=== PATIENT | male | born 1975 | race Caucasian/White ===

== ENCOUNTER 2021-06-25 09:21 | Emergency (ER) | payer OTHER ==
[~2021-06-25] VITALS: Ht 182.9 cm; Wt 89.0 kg
--- OUTSIDE RECORDS SUMMARY | 2021-06-25 10:13 | CCD | Continuity of Care Document ---
Author Author Terrell WYLIE Organization Unknown Address [address] [place] [address] [place] [address] Phone [phone] Problems Description No Information Available Social History Type Date Description Comments Sex Unknown ETOH Use Occasionally consumes alcohol Tobacco Use Start: Unknown Patient has never smoked Tobacco Use Start: Unknown The patient has never vaped Smoking Status Reviewed: 05/16/21 The patient has never vaped Allergies, Adverse Reactions, Alerts Description No Known Drug Allergies Medications Description No Active Medications Immunizations Description No Information Available Vital Signs Date Vital Result Comment 05/16/2021 4:26pm BP Systolic 117 mmHg BP Diastolic 77 mmHg Heart Rate 68 /min Respiratory Rate 16 /min O2 % BldC Oximetry 99 % Body Temperature 98.2 F Weight 190.00 lb Height 71 inches 5'11" BMI (Body Mass Index) 26.5 kg/m2 Pain Level 5 Results Description No Information Available Procedures Date Code Description Status 05/16/2021 88849 Office/Outpatient New Low MDM 30 -44 Minutes Completed Medical Devices Description No Information Available Encounters Type Date Location Provider Dx Diagnosis Office Visit 05/16/2021 11:10a Main Office KATHY Hernandez J00 Acute nasopharyngitis [common cold] Z20.828 Contact w and exposure to ot h viral communicable diseases Assessments Date Code Description Provider 05/16/2021 J00 Acute nasopharyngitis [common co ld] KATHY Hernandez 05/16/2021 Z20.828 Contact with and (marshall spected) exposure to other viral communicable diseases KATHY Hernandez Plan of Treatment 05/16/2021 - KATHY Hernandez* J00 Acute nasopharyngitis [common cold] * Z20.828 Contact with and (suspected) exposure to other viral communicable diseases * All * New Medication:* No Active Medications - Functional Status Description No Information Available Mental Status Description No Information Available Referrals Description No Information Available
--- OUTSIDE RECORDS SUMMARY | 2021-06-25 10:13 | CCD ---
Author Author [facility] Organization [facility] Address Unknown Phone Unavailable Care Team Providers Care Box Sorter Name Role Phone NO, PCP Unavailable Unavailable RING, K CHRISSY PA Unavailable Unavailable RING, K CHRISSY PA Unavailable Unavailable RING, K CHRISSY PA Unavailable Unavailable RING, K CHRISSY PA Unavailable Unavailable RING, K CHRISSY PA Unavailable Unavailable RING, K CHRISSY PA Unavailable Unavailable RING, K CHRISSY PA Unavailable Unavailable RING, K CHRISSY PA Unavailable Unavailable RING, K CHRISSY PA Unavailable Unavailable RING, K CHRISSY PA Unavailable Unavailable RING, K CHRISSY PA Unavailable Unavailable RING, K CHRISSY PA Unavailable Unavailable RING, K CHRISSY PA Unavailable Unavailable RING, K CHRISSY PA Unavailable Unavailable RING, K CHRISSY PA Unavailable Unavailable RING, K CHRISSY PA Unavailable Unavailable RING, K CHRISSY PA Unavailable Unavailable RING, K CHRISSY PA Unavailable Unavailable RING, K CHRISSY PA Unavailable Unavailable RING, K CHRISSY PA Unavailable Unavailable RING, K CHRISSY PA Unavailable Unavailable Osmar, R Althea SKATE BOARDER Unavailable Unavailable Osmar, R Althea SKATE BOARDER Unavailable Unavailable Osmar, R Althea SKATE BOARDER Unavailable Unavailable Osmar, R Althea SKATE BOARDER Unavailable Unavailable Omsar, R Althea SKATE BOARDER Unavailable Unavailable Osmar, R Althea SKATE BOARDER Unavailable Unavailable Osmar, R Althea SKATE BOARDER Unavailable Unavailable Osmar, R Althea SKATE BOARDER Unavailable Unavailable Osmar, R Althea SKATE BOARDER Unavailable Unavailable Osmar, R Althea SKATE BOARDER Unavailable Unavailable Osmar, R Althea SKATE BOARDER Unavailable Unavailable Osmar, R Althea SKATE BOARDER Unavailable Unavailable Osmar, R Althea SKATE BOARDER Unavailable Unavailable Osmar, R Althea SKATE BOARDER Unavailable Unavailable Osmar, R Althea SKATE BOARDER Unavailable Unavailable Osmar, R Althea SKATE BOARDER Unavailable Unavailable Osmar, R Althea SKATE BOARDER Unavailable Unavailable Osmar, R Althea SKATE BOARDER Unavailable Unavailable Osmar, R Althea SKATE BOARDER Unavailable Unavailable Osmar, R Althea SKATE BOARDER Unavailable Unavailable Osmar, R Althea SKATE BOARDER Unavailable Unavailable Osmar, R Althea SKATE BOARDER Unavailable Unavailable Osmar, R Althea SKATE BOARDER Unavailable Unavailable Osmar, R Althea SKATE BOARDER Unavailable Unavailable Osmar, R Althea SKATE BOARDER Unavailable Unavailable Osmar, R Althea SKATE BOARDER Unavailable Unavailable Osmar, R Althea SKATE BOARDER Unavailable Unavailable Osmar, R Althea SKATE BOARDER Unavailable Unavailable Osmar, R Althea SKATE BOARDER Unavailable Unavailable Osmar, R Althea SKATE BOARDER Unavailable Unavailable Osmar, R Althea SKATE BOARDER Unavailable Unavailable Osmar, R Althea SKATE BOARDER Unavailable Unavailable Osmar, R Althea SKATE BOARDER Unavailable Unavailable Osmar, R Althea SKATE BOARDER Unavailable Unavailable Osmar, R Althea SKATE BOARDER Unavailable Unavailable Osmar, R Althea SKATE BOARDER Unavailable Unavailable Osmar, R Althea SKATE BOARDER Unavailable Unavailable Osmar, R Althea SKATE BOARDER Unavailable Unavailable Osmar, R Althea SKATE BOARDER Unavailable Unavailable Osmar, R Althea SKATE BOARDER Unavailable Unavailable Re-disclosure Warning The records that you are about to access may contain information from federally-assisted alcohol or drug abuse programs. If such information is present, then the following federally mandated warning applies: This information has been disclosed to you from records protected by federal confidentiality rules (42 CFR part 2). The federal rules prohibit you from making any further disclosure of this information unless further disclosure is expressly permitted by the written consent of the person to whom it pertains or as otherwise permitted by 42 CFR part 2. A general authorization for the release of medical or other information is NOT sufficient for this purpose. The Federal rules restrict any use of the information to criminally investigate or prosecute any alcohol or drug abuse patient.The records that you are about to access may contain highly sensitive health information, the redisclosure of which is protected by Article 27-F of the [facility] Public Health law. If you continue you may have access to information: Regarding HIV / AIDS; Provided by facilities licensed or operated by the [facility] Office of Mental Health; or Provided by the [facility] Office for People With Developmental Disabilities. If such information is present, then the following [facility] mandated warning applies: This information has been disclosed to you from confidential records which are protected by state law. State law prohibits you from making any further disclosure of this information without the specific written consent of the person to whom it pertains, or as otherwise permitted by law. Any unauthorized further disclosure in violation of state law may result in a fine or snf sentence or both. A general authorization for the release of medical or other information is NOT sufficient authorization for further disc losure. Encounters Encounter Providers Location Date Indications Data Source(s ) Outpatient Attender: CHRISSY Rico Primary 05/16/2021 11:10:00 AM EDT [facility] ([facility], [facility]) Outpatient Attender: Althea Prasad FNPConsultant: PCP NO 10/23/2020 03:15:00 PM EDT - 10/23/2020 04:15:00 PM EDT [facility] [address] [facility] [address] 10/20/2020 12:00:00 AM EDT eC1 ([facility]) Immunizations Vaccine Date Status Description Data Source(s) COVID-19 VACCINE Moderna 01/08/2021 12:00:00 AM EDT completed [facility] Vaccine Series Complete: YESThis Data wa s Submitted to [facility] [employer]. COVID-19 VACCINE Moderna 11/06/2020 12:00:00 AM EDT completed [facility] Vaccine Series Complete: NOThis Data was Submitted to [facility] [employer]. COVID-19 VACCINE, MRNA-[id number], LNP-S (MODERNA)/PF 11/06/2020 1 2:00:00 AM EDT completed [facility] Medications No Information Insurance Providers Payer name Policy type / Coverage type Policy ID Covered democrat ID Covered democrat's relationship to page Policy Page Plan Information OTHER1 [facility] [employer] [id number] SP [id number] [facility] [employer] XIX [id number] [facility] [id number] SP [id number] Problems, Conditions, and Diagnoses Code Display Name Description Problem Type Effective Dates Data Source(s) Z0000 Encounter for general adult medical exam ination without abnormal findings Encounter for general adult medical examination without abnormal findings Diagnosis 10/23/2020 03:15:00 PM EDT [facility] Surgeries/Procedures Procedure Description Date Indications Data Source(s) OFFICE OUTPATIENT NEW 30 MINUTES 05/16/2021 12:00:00 A M EDT [facility] ([facility], [facility]) Results ID Date Data Source [id number] 05/17/2021 12:00:00 AM EDT [facility] Name Value Range Interpretation Code Description Data Xiomara rce(s) Supporting Document(s) SARS-CoV2 Rapid Antigen Negative [facility] This lab was reported by [facility]. ID Date Data Source [id number] 10/23/2020 04:04:00 PM EDT [facility] Name Value Range Interpretation Code Description Data Xiomara rce(s) Supporting Document(s) COMPREHENSIVE METABOLIC PANEL [facility] COMPREHENSIVE METABOLIC PANEL Sodium [Moles/volume] in Serum or Plasma 139 mEq/L 134 - 153 [facility] Potassium [Moles/volume] in Serum or Plasma 4.1 mEq/L 3.6 - 5.0 [facility] Chloride [Moles/volume] in Serum or Plasma 101 mEq/L 98 - 107 [facility] Carbon dioxide, total [Moles/volume] in Serum or Plasma 29 MEQ/L 22 - 30 [facility] Glucose [Mass/volume] in Serum or Plasma 89 MG/DL 70 - 99 [facility] BUN 19 MG/DL 7 - 21 [facility] Creatinine [Mass/volume] in Serum or Plasma 1.0 MG/DL 0.7 - 1.5 [facility] BUN/CREAT 19 8 - 27 [facility] Protein [Mass/volume] in Serum or Plasma 7.0 G/DL 6.3 - 8.2 [facility] Albumin [Mass/volume] in Serum or Plasma 4.8 G/DL 3.9 - 5.0 [facility] Globulin [Mass/volume] in Serum by calculation 2.2 GM/DL 2.4 - 3.2 L [facility] A/G RATIO 2.2 0.8 - 2.0 [facility] Calcium [Mass/volume] in Serum or Plasma 9.3 MG/DL 8.4 - 10.2 [facility] Bilirubin.total [Mass/volume] in Serum or Plasma <0.7 MG/DL 0.2 - 1.3 [facility] Alkaline phosphatase [Enzymatic activity/volume] in Serum or Plasma 66 U/L 38 - 126 [facility] Aspartate aminotransferase [Enzymatic activity/volume] in Serum or Plasma 28 U/L 5 - 40 [facility] Alanine aminotransferase [Enzymatic activity/volume] in Seru m or Plasma 28 U/L 7 - 56 [facility] Anion gap 3 in Serum or Plasma 9.0 mmol/L 8.0 - 16.0 [facility] AGE 45 yrs [facility] al NON-AA GFR >60 mL/min [facility] AFR AMER GFR >60 mL/min [facility] Male GFR In terprentation 20-49 yrs >60 mL/min Normal 50-59 yrs >56 mL/min Normal 60-69 yrs >49 mL/min Normal 70-79yrs >42 mL/min Normal 80 and above >35 mL/min Normal Female GFR Interpretation 20-39 yrs >60 mL/min Normal 40-49 yrs >58 mL/min Normal 50-59 yrs >51 mL/min Normal 60-69 yrs >45 mL/min Normal 70-79 yrs >39 mL/min Normal 80 and above >32 mL/min Normal ID Date Data Source [id number] 10/23/2020 04:04:00 PM EDT [facility] Name Value Range Interpretation Code Description Data Xiomara rce(s) Supporting Document(s) CVE PANEL [facility] LIPID PANEL Cholesterol [Mass/volume] in Serum or Plasma 193 MG/DL 131 - 200 [facility] Deprecated Triglyceride [Mass/volume] in Serum or Plasma 135 MG/DL 3 5 - 160 [facility] HDL 46 MG/DL 29 - 86 [facility] Cholesterol in LDL [Mass/volume] in Serum or Plasma by Direc t assay 149 mg/dL 65 - 175 [facility] Cholesterol.total/Cholesterol in HDL [Mass Ratio] in Serum o r Plasma 4.2 3.4 - 4.9 [facility] LDL/HDL 3.24 1.00 - 3.55 [facility] CVE RISK CHOL/HDL LDL/HDLMEN: 1/2 AVERAGE 3.43 1.00 AVERAGE 4.97 3.55 2X AVERAGE 9.55 6.25 3X AVERAGE 23.99 7.99WOMEN: 1/2 AVERAGE 3.27 1.47 AVERAGE 4.44 3.22 2X AVERAGE 7.05 5.03 3X AVERAGE 11.04 6.14 ID Date Data Source [id number] 10/23/2020 04:01:00 PM EDT [facility] Name Value Range Interpretation Code Description Data Xiomara rce(s) Supporting Document(s) CBC W/AUTOMATED DIFF [facility] COMPLETE BLOOD COUNT Leukocytes [#/volume] in Blood by Automated count 6.4 10^3/uL 4.2 - 1 1.0 [facility] Erythrocytes [#/volume] in Blood by Automated count 4.91 10^6/uL 4. 50 - 6.30 [facility] Hemoglobin [Mass/volume] in Blood 14.1 g/dL 14.0 - 16.0 [facility] Hematocrit [Volume Fraction] of Blood by Automated count 41.2 % 4 1.0 - 51.0 [facility] Erythrocyte mean corpuscular volume [Entitic volume] by Auto mated count 83.9 fL 80.0 - 94.0 [facility] Erythrocyte mean corpuscular hemoglobin [Entitic mass] by Automated count 28.7 pg 27.0 - 34.0 [facility] Erythrocyte mean corpuscular hemoglobin concentration [Mass/volume] by Automated count 34.2 g/dL 31.0 - 36.0 [facility] Erythrocyte distribution width [Ratio] by Automated count 14.9 % 11.5 - 14.8 H [facility] Platelets [#/volume] in Blood by Automated count 244 10^3/uL 150 - 45 0 [facility] Platelet mean volume [Entitic volume] in Blood by Automated count 8.6 fL 7.4 - 10.4 [facility] Neutrophils/100 leukocytes in Blood by Automated count 54.7 % 37. 0 - 80.0 [facility] Lymphocytes/100 leukocytes in Blood by Manual count 31.1 % 25.0 - 40.0 [facility] Monocytes/100 leukocytes in Blood by Automated count 9.1 % 3.0 - 8.0 H [facility] Eosinophils/100 leukocytes in Blood by Automated count 4.1 % 0.0 - 7.0 [facility] Basophils/100 leukocytes in Blood by Automated count 0.8 % 0.0 - 2.0 [facility] %IG 0.2 % 0.0 - 0.[address] [facility] %NRBC 0.0 % 0.0 - 0.0 [facility] al Neutrophils [#/volume] in Blood by Automated count 3.48 10^3/uL 2.00 - 6.90 [facility] Lymphocytes [#/volume] in Blood by Automated count 1.98 10^3/uL 0.60 - 3.40 [facility] Monocytes [#/volume] in Blood by Automated count 0.58 10^3/uL 0.00 - 0.90 [facility] Eosinophils [#/volume] in Blood by Automated count 0.26 10^3/uL 0.00 - 0.70 [facility] Basophils [#/volume] in Blood by Automated count 0.05 10^3/uL 0.00 - 0.20 [facility] #IG 0.01 10^3/uL 0.00 - 0.10 [facility]ital #NRBC 0.00 10^3/uL 0.00 - 0.00 [facility] MANUAL DIFF NOT INDICATED [facility] RBC MORPH NOT INDICATED [facility] Procedure Social History Code Duration Value Status Description Data Source(s ) Smoking 10/20/2020 12:00:00 AM EDT Never Smoker completed Never S carroll eCW1 ([facility]) Vital Signs ID Date Data Source UNK Name Value Range Interpretation Code Description Data Source(s) Systolic blood pressure 117 mm[Hg] 117 mm[Hg] M [facility]ENT ([facility], [facility]) Diastolic blood pressure 77 mm[Hg] 77 mm[Hg] [facility] ([facility], [facility]) Heart rate 68 /min 68 /min [facility] ([facility]) Respiratory rate 16 /min 16 /min [facility] ( [facility], [facility]) Oxygen saturation in Arterial blood by Pulse oximetry 99 % 99 % [facility] ([facility], [facility]) Body temperature 98.2 [degF] 98.2 [degF] [facility] ([facility], [facility]) Body weight 190.00 [lb_av] 190.00 [lb_av] MEDEN T ([facility], [facility]) Body height 71 [in_i] 71 [in_i] [facility] ([facility]) 5'11" Body mass index (BMI) [Ratio] 26.5 kg/m2 26.5 k g/m2 [facility] ([facility]) Body weight 203.8 [lb_av] 203.8 [lb_av] W1 ([facility]) Body height 72 [in_i] 72 [in_i] eCW1 ([facility]) Body mass index (BMI) [Ratio] 27.64 kg/m2 27.64 kg/m2 eCW1 ([facility]) Heart rate 75 /min 75 /min eCW1 ([facility]) Respiratory rate 16 /min 16 /min eCW1 ([facility]) Body temperature 98.7 [degF] 98.7 [degF] eCW1 ( [facility]) Systolic blood pressure 119 mm[Hg] 119 mm[Hg] e CW1 ([facility]) Diastolic blood pressure 73 mm[Hg] 73 mm[Hg] eCW1 ([facility])
--- OUTSIDE RECORDS SUMMARY | 2021-06-25 10:13 | CCD | Continuity of Care Document ---
Author Author Terrell WYLIE Organization Unknown Address [address] [place] [id number] Phone [phone] Problems Description No Information Available Social History [...] 5 Results Description No Information Available Procedures Description No Information Available Medical Devices Description No Information Available Encounters Description No Information Available Assessments Description No Information Available Plan of Treatment 05/16/2021 - KATHY Hernandez* All * New Medication:* No Active Medications - Functional Status Description No Information Available Mental Status Description No Information Available Referrals Description No Information Available
[2021-06-25] MEDS ORDERED: diphenhydrAMINE 50MG/ML VIAL (J1200) IV ONE (12:35)
[2021-06-25] MEDS ORDERED: ACETAMINOPHEN 500 MG TAB PO ONE (12:35)
[2021-06-25] MEDS ORDERED: METOCLOPRAMIDE INJ 10MG/2ML VIAL (J2765 PER 1) IV ONE (12:35)
[2021-06-25] MEDS ORDERED: NS 1,000 ML IV ONE (12:35)
--- OUTSIDE RECORDS SUMMARY | 2021-06-25 12:48 | CCD ---
Author Author [facility] Organization [facility] Address Unknown Phone Unavailable Care Team Providers Care Rock Lather Name Role Phone NO, PCP Unavailable Unavailable [...] CHRISSY PA Unavailable Unavailable Osmar, R Althea SPIRAL WEAVER Unavailable Unavailable Osmar, R Althea SPIRAL WEAVER Unavailable Unavailable Osmar, R Althea SPIRAL WEAVER Unavailable Unavailable Osmar, R Althea SPIRAL WEAVER Unavailable Unavailable Osmar, R Althea SPIRAL WEAVER Unavailable Unavailable Osmar, R Althea SPIRAL WEAVER Unavailable Unavailable Osmar, R Althea SPIRAL WEAVER Unavailable Unavailable Osmar, R Althea SPIRAL WEAVER Unavailable Unavailable Osmar, R Althea SPIRAL WEAVER Unavailable Unavailable Osmar, R Althea SPIRAL WEAVER Unavailable Unavailable Osmar, R Althea SPIRAL WEAVER Unavailable Unavailable Osmar, R Althea SPIRAL WEAVER Unavailable Unavailable Osmar, R Althea SPIRAL WEAVER Unavailable Unavailable Osmar, R Althea SPIRAL WEAVER Unavailable Unavailable Osmar, R Althea SPIRAL WEAVER Unavailable Unavailable Osmar, R Althea SPIRAL WEAVER Unavailable Unavailable Osmar, R Althea SPIRAL WEAVER Unavailable Unavailable Osmar, R Althea SPIRAL WEAVER Unavailable Unavailable Osmar, R Althea SPIRAL WEAVER Unavailable Unavailable Osmar, R Althea SPIRAL WEAVER Unavailable Unavailable Osmar, R Althea SPIRAL WEAVER Unavailable Unavailable Osmar, R Althea SPIRAL WEAVER Unavailable Unavailable Osmar, R Althea SPIRAL WEAVER Unavailable Unavailable Osmar, R Althea SPIRAL WEAVER Unavailable Unavailable Osmar, R Althea SPIRAL WEAVER Unavailable Unavailable Osmar, R Althea SPIRAL WEAVER Unavailable Unavailable Osmar, R Althea SPIRAL WEAVER Unavailable Unavailable Osmar, R Althea SPIRAL WEAVER Unavailable Unavailable Osmar, R Althea SPIRAL WEAVER Unavailable Unavailable Osmar, R Althea SPIRAL WEAVER Unavailable Unavailable Osmar, R Althea SPIRAL WEAVER Unavailable Unavailable Osmar, R Althea SPIRAL WEAVER Unavailable Unavailable Osmar, R Althea SPIRAL WEAVER Unavailable Unavailable Osmar, R Althea SPIRAL WEAVER Unavailable Unavailable Osmar, R Althea SPIRAL WEAVER Unavailable Unavailable Osmar, R Althea SPIRAL WEAVER Unavailable Unavailable Osmar, R Althea SPIRAL WEAVER Unavailable Unavailable Osmar, R Althea SPIRAL WEAVER Unavailable Unavailable Osmar, R Althea SPIRAL WEAVER Unavailable Unavailable Osmar, R Althea SPIRAL WEAVER Unavailable Unavailable Re-disclosure Warning The records that [...] is protected by Article 27-F of the [facility] Public Health law. If you continue you may have access to information: Regarding HIV / AIDS; Provided by facilities licensed or operated by the [facility] Office of Mental Health; or Provided by the [facility] Office for People With Developmental Disabilities. If such information is present, then the following [facility] mandated warning applies: This information has [...] law may result in a fine or senior living sentence or both. A general authorization for the release of medical or other information is NOT sufficient authorization for further disc losure. Encounters Encounter Providers Location Date Indications Data Source(s ) Outpatient Attender: CHRISSY Rico Primary 05/16/2021 11:10:00 AM EDT [facility] ([facility], [facility]) Outpatient Attender: Althea Prasad FNPConsultant: PCP NO 10/23/2020 03:15:00 PM EDT - 10/23/2020 04:15:00 PM EDT [facility] [address] [address] 10/20/2020 12:00:00 AM EDT eC1 ([facility]) Immunizations Vaccine Date Status Description Data Source(s) COVID-19 VACCINE Moderna 01/08/2021 12:00:00 AM EDT completed [facility] Vaccine Series Complete: YESThis Data wa s Submitted to [facility] Via [facility]. COVID-19 VACCINE Moderna 11/06/2020 12:00:00 AM EDT completed [facility] Vaccine Series Complete: NOThis Data was Submitted to [facility] Via [employer]. COVID-19 VACCINE, MRNA-[id number], LNP-S (MODERNA)/PF 11/06/2020 1 2:00:00 AM EDT completed [facility] Medications No Information Insurance Providers Payer name Policy type / Coverage type Policy ID Covered republican ID Covered republican's relationship to page Policy Page Plan Information OTHER1 [id number] SP [id number] [facility] XIX [id number] 18 [id number] [facility] [id number] SP [id number] Problems, Conditions, and Diagnoses Code Display Name Description Problem Type Effective Dates Data Source(s) Z0000 Encounter for general adult medical exam ination without abnormal findings Encounter for general adult medical examination without abnormal findings Diagnosis 10/23/2020 03:15:00 PM EDT [facility] Surgeries/Procedures Procedure Description Date Indications Data Source(s) OFFICE OUTPATIENT NEW 30 MINUTES 05/16/2021 12:00:00 A M EDT [facility] ([facility], [facility]) Results ID Date Data Source [id number] 05/17/2021 12:00:00 AM EDT [facility] Name Value Range Interpretation Code Description Data Xiomara rce(s) Supporting Document(s) SARS-CoV2 Rapid Antigen Negative [facility] This lab was reported by [facility]. ID Date Data Source [id number] 10/23/2020 04:04:00 PM EDT [facility] Name Value Range Interpretation Code Description Data Xiomara rce(s) Supporting Document(s) COMPREHENSIVE METABOLIC PANEL [facility] COMPREHENSIVE METABOLIC PANEL Sodium [Moles/volume] in Serum or Plasma 139 mEq/L 134 - 153 [facility] Potassium [Moles/volume] in Serum or Plasma 4.1 mEq/L 3.6 - 5.0 [facility] Chloride [Moles/volume] in Serum or Plasma 101 mEq/L 98 - 107 [facility] Carbon dioxide, total [Moles/volume] in Serum or Plasma 29 MEQ/L 22 - 30 [facility] Glucose [Mass/volume] in Serum or Plasma 89 MG/DL 70 - 99 [facility] BUN 19 MG/DL 7 - 21 [facility] Creatinine [Mass/volume] in Serum or Plasma 1.0 MG/DL 0.7 - 1.5 [facility] BUN/CREAT 19 8 - [facility] Protein [Mass/volume] in Serum or Plasma 7.0 G/DL 6.3 - 8.2 [facility] Albumin [Mass/volume] in Serum or Plasma 4.8 G/DL 3.9 - 5.0 [facility] Globulin [Mass/volume] in Serum by calculation 2.2 GM/DL 2.4 - 3.2 L [facility] A/G RATIO 2.2 0.8 - 2.0 H [facility] Calcium [Mass/volume] in Serum or Plasma 9.3 MG/DL 8.4 - 10.2 [facility] Bilirubin.total [Mass/volume] in Serum or Plasma <0.7 MG/DL 0.2 - 1.3 [facility] Alkaline phosphatase [Enzymatic activity/volume] in Serum or Plasma 66 U/L 38 - 126 [facility] Aspartate aminotransferase [Enzymatic activity/volume] in Serum or Plasma 28 U/L 5 - 40 [facility] Alanine aminotransferase [Enzymatic activity/volume] in Seru m or Plasma 28 U/L 7 - 56 [facility] Anion gap 3 in Serum or Plasma 9.0 mmol/L 8.0 - 16.0 [facility] AGE 45 yrs [facility] al NON-AA GFR >60 mL/min [facility] AFR AMER GFR >60 mL/min [facility] Male GFR In terprentation [...] >32 mL/min Normal ID Date Data Source [id number] 10/23/2020 04:04:00 PM EDT [facility] Name Value Range Interpretation Code Description Data Xiomara rce(s) Supporting Document(s) CVE PANEL [facility] LIPID PANEL Cholesterol [Mass/volume] in Serum or Plasma 193 MG/DL 131 - 200 [facility] Deprecated Triglyceride [Mass/volume] in Serum or Plasma 135 MG/DL 3 5 - 160 [facility] HDL 46 MG/DL 29 - 86 [facility] Cholesterol in LDL [Mass/volume] in Serum or Plasma by Direc t assay 149 mg/dL 65 - 175 [facility] Cholesterol.total/Cholesterol in HDL [Mass Ratio] in Serum o r Plasma 4.2 3.4 - 4.9 [facility] LDL/HDL 3.24 1.00 - 3.55 [facility] CVE RISK CHOL/HDL LDL/HDLMEN: 1/2 AVERAGE 3.43 1.00 AVERAGE 4.97 3.55 2X AVERAGE 9.55 6.25 3X AVERAGE 23.99 7.99WOMEN: 1/2 AVERAGE 3.27 1.47 AVERAGE 4.44 3.22 2X AVERAGE 7.05 5.03 3X AVERAGE 11.04 6.14 ID Date Data Source [id number] 10/23/2020 04:01:00 PM EDT [facility] Name Value Range Interpretation Code Description Data Xiomara rce(s) Supporting Document(s) CBC W/AUTOMATED DIFF [facility] COMPLETE BLOOD COUNT Leukocytes [#/volume] in Blood by Automated count 6.4 10^3/uL 4.2 - 1 1.0 [facility] Erythrocytes [#/volume] in Blood by Automated count 4.91 10^6/uL 4. 50 - 6.30 [facility] Hemoglobin [Mass/volume] in Blood 14.1 g/dL 14.0 - 16.0 [facility] Hematocrit [Volume Fraction] of Blood by Automated count 41.2 % 4 1.0 - 51.0 [facility] Erythrocyte mean corpuscular volume [Entitic volume] by Auto mated count 83.9 fL 80.0 - 94.0 [facility] Erythrocyte mean corpuscular hemoglobin [Entitic mass] by Automated count 28.7 pg 27.0 - 34.0 [facility] Erythrocyte mean corpuscular hemoglobin concentration [Mass/volume] by Automated count 34.2 g/dL 31.0 - 36.0 [facility] Erythrocyte distribution width [Ratio] by Automated count 14.9 % 11.5 - 14.8 H [facility] Platelets [#/volume] in Blood by Automated count 244 10^3/uL 150 - 45 0 [facility] Platelet mean volume [Entitic volume] in Blood by Automated count 8.6 fL 7.4 - 10.4 [facility] Neutrophils/100 leukocytes in Blood by Automated count 54.7 % 37. 0 - 80.0 [facility] Lymphocytes/100 leukocytes in Blood by Manual count 31.1 % 25.0 - 40.0 [facility] Monocytes/100 leukocytes in Blood by Automated count 9.1 % 3.0 - 8.0 H [facility] Eosinophils/100 leukocytes in Blood by Automated count 4.1 % 0.0 - 7.0 [facility] Basophils/100 leukocytes in Blood by Automated count 0.8 % 0.0 - 2.0 [facility] %IG 0.2 % 0.0 - 0.0 H [facility] %NRBC 0.0 % 0.0 - 0.0 [facility] al Neutrophils [#/volume] in Blood by Automated count 3.48 10^3/uL 2.00 - 6.90 [facility] Lymphocytes [#/volume] in Blood by Automated count 1.98 10^3/uL 0.60 - 3.40 [facility] Monocytes [#/volume] in Blood by Automated count 0.58 10^3/uL 0.00 - 0.90 [facility] Eosinophils [#/volume] in Blood by Automated count 0.26 10^3/uL 0.00 - 0.70 [facility] Basophils [#/volume] in Blood by Automated count 0.05 10^3/uL 0.00 - 0.20 [facility] #IG 0.01 10^3/uL 0.00 - 0.10 [facility] ospital #NRBC 0.00 10^3/uL 0.00 - 0.00 [facility]ital MANUAL DIFF NOT INDICATED [facility] RBC MORPH NOT INDICATED [facility] Procedure Social History Code Duration Value Status Description Data Source(s ) Smoking 10/20/2020 12:00:00 AM EDT Never Smoker completed Never S carroll eCW1 ([facility]) Vital Signs ID Date Data Source UNK Name Value Range Interpretation Code Description Data Source(s) Systolic blood pressure 117 mm[Hg] 117 mm[Hg] M EDENT ([facility], [facility]) Diastolic blood pressure 77 mm[Hg] 77 mm[Hg] MED[facility] ([facility], [facility]) Heart rate 68 /min 68 /min [facility] ([facility], [facility]) Respiratory rate 16 /min 16 /min [facility] ( [facility], [facility]) Oxygen saturation in Arterial blood by Pulse oximetry 99 % 99 % [facility] ([facility], [facility]) Body temperature 98.2 [degF] 98.2 [degF] MEDENT ([facility], [facility]) Body weight 190.00 [lb_av] 190.00 [lb_av] MEDEN T ([facility], [facility]) Body height 71 [in_i] 71 [in_i] MEDENT ([facility]) 5'11" Body mass index (BMI) [Ratio] 26.5 kg/m2 26.5 k g/m2 [facility] ([facility]) Body weight 203.8 [lb_av] 203.8 [lb_av] W1 ([facility]) Body height 72 [in_i] 72 [in_i] eCW1 ([facility]) Body mass index (BMI) [Ratio] 27.64 kg/m2 27.64 kg/m2 eCW1 ([facility]) Heart rate 75 /min 75 /min eCW1 ([facility]) Respiratory rate 16 /min 16 /min eCW1 ([facility]) Body temperature 98.7 [degF] 98.7 [degF] eCW1 ( [facility]) Systolic blood pressure 119 mm[Hg] 119 mm[Hg] e CW1 ([facility]) Diastolic blood pressure 73 mm[Hg] 73 mm[Hg] eCW1 ([facility])
--- NOTE | 2021-06-25 12:57 | REP ---
INDICATION: headache x5 days COMPARISON: None. TECHNIQUE: Axial noncontrast images from the skull base to the vertex with coronal reformations. This CT examination was performed using the following dose reduction techniques: Automated exposure control, adjustment of mA and/or kv according to the patient's size, and use of iterative reconstruction technique. FINDINGS: The ventricles, sulci, and cisterns are normal in position and appearance. Sawyer-white differentiation is maintained. No acute intracranial hemorrhage, mass/mass effect, pathology or trauma/injury. No evidence for acute infarction. No extra-axial fluid collection. Calvarium is intact. Paranasal sinuses and mastoid air cells are clear. IMPRESSION: Normal noncontrast head CT. No evidence for acute intracranial pathology or trauma/injury. <Electronically signed by Elmer Herndon > 06/25/21 [id number]
[2021-06-25 13:08] LABS: BASO % 0.5 % (0.0-1.0); EOS # 0.2 10^3/uL (0.0-0.5); EOS % 2.7 % (0.0-3.0); HEMATOCRIT 46.5 % (42.0-52.0); HEMOGLOBIN 15.5 g/dl (13.5-17.5); LYMPH # 1.9 10^3/uL (1.5-5.0); MEAN CORPUSCULAR HEMOGLOBIN 28.4 pg (27.0-33.0); MEAN CORPUSCULAR HGB CONC 33.3 g/dl (32.0-36.5); MEAN CORPUSCULAR VOLUME 85.3 fl (80.0-96.0); MONO # 0.6 10^3/uL (0.0-0.8); MONO % 8.1 % (2.0-8.0); NEUTROPHILS % 64.4 % (36.0-66.0); PLATELET COUNT, AUTOMATED 284 10^3/uL (150-450); RED BLOOD COUNT 5.45 10^6/uL (4.30-6.10); WHITE BLOOD COUNT 7.8 10^3/uL (4.0-10.0)
[2021-06-25 13:31] LABS: BLOOD UREA NITROGEN 13 MG/DL (7-18); CALCIUM LEVEL 10.2 MG/DL (8.5-10.1); CARBON DIOXIDE LEVEL 30 MEQ/L (21-32); CHLORIDE LEVEL 104 MEQ/L (98-107); CREATININE FOR GFR 1.08 MG/DL (0.70-1.30); GLOMERULAR FILTRATION RATE > 60.0 (>60); GLUCOSE, FASTING 98 MG/DL (70-100); POTASSIUM SERUM 4.4 MEQ/L (3.5-5.1); SODIUM LEVEL 139 MEQ/L (136-145)
[2021-06-25 13:38] LABS: RSV AMPLIFICATION NEGATIVE (NEGATIVE)
[2021-06-25 14:56] VITALS: BP 118/79
== END 2021-06-25 15:01 | disposition home or self-care (01) ==
LOC: M ED 09:21
DX: R51.9 Headache, unspecified (principal)
CPT/HCPCS: 36415; 70450; 80048; 85025; 87631; 96361; 96374; 96375; 99284; J1200; J2765

== ENCOUNTER → 2024-03-16 | Day surgery (SDC) | payer OTHER ==
[~2024-03-16] VITALS: Ht 180.3 cm; Wt 59.0 kg
[~2024-03-16] MED LIST: ZOLP10TA2 PO; propofoL 200 MG/20 ML VIAL As Ordered ONE
[2024-03-16] MEDS: NS 1,000 ML IV ONE (07:29)
[2024-03-16 09:10] VITALS: BP 120/86; O2SAT 98
== END | disposition home or self-care (01) ==
LOC: M OPP 07:06
PROVIDERS: ATTEND Internal Medicine Gastroenterology
DX: Z12.11 Encounter for screening for malignant neoplasm of colon (principal); K64.8 Other hemorrhoids; Z79.899 Other long term (current) drug therapy

== ENCOUNTER → 2024-08-24 | Outpatient (CLI) | payer OTHER ==
[~2024-08-24] MED LIST changes: -propofoL 200 MG/20 ML VIAL As Ordered ONE
== END ==
LOC: M SLEEP HO 14:53
PROVIDERS: ATTEND Physician Assistant
DX: F51.01 Primary insomnia (principal); G47.33 Obstructive sleep apnea (adult) (pediatric)

== ENCOUNTER → 2024-11-06 | Outpatient (CLI) | payer OTHER | LOC: M SLEEP 20:00 | PROVIDERS: ATTEND Physician Assistant | DX: G47.33 Obstructive sleep apnea (adult) (pediatric) (principal) ==